=== PATIENT | male | born 1975 | race Caucasian/White ===

== ENCOUNTER 2020-10-16 15:01 | Emergency (ER) | payer OTHER ==
[~2020-10-16] VITALS: Wt 88.5 kg
[2020-10-16] MEDS ORDERED: CEPHALEXIN500 M1 PO (16:19)
[2020-10-16] MEDS ORDERED: IBUPROFEN600 MG PO (16:19)
== END 2020-10-16 17:19 | disposition home or self-care (01) ==
LOC: ED 15:01
DX: S61.412A Laceration without foreign body of left hand, initial encounter (principal); W26.0XXA Contact with knife, initial encounter; Y93.89 Activity, other specified; Y92.89 Other specified places as the place of occurrence of the external cause; Y99.8 Other external cause status